=== PATIENT | male | born 1955 | race African-American/Black ===

== ENCOUNTER 2019-01-05 22:59 | Inpatient (IN) ==
[2019-01-05] MEDS ORDERED: ASPIRIN PO ONE (23:02)
[2019-01-05] MEDS ORDERED: CATAPRES PO ONE (23:53)
[2019-01-06 00:03] LABS: BASO# 0.02 X1000 (0.0-0.2); BASO% 0.2 % (0.0-0.8); EOS# 0.14 X1000 (0.0-0.7); EOS% 1.5 % (0.0-10.0); HEMATOCRIT 43.6 % (42.0-52.0); HEMOGLOBIN 14.9 g/dL (14.0-18.0); LYMPH# 2.36 X1000 (1.2-3.4); LYMPH% 24.5 % (20.5-51.1); MCH 31.4 PG (27-31); MCHC 34.2 g/dL (33-37); MONO# 0.72 X1000 (0.11-0.59); MONO% 7.5 % (1.7-9.3); MPV 11.9 FL (7.4-10.4); NEUT# 6.38 X1000 (1.4-6.5); NEUT% 66.3 % (42.2-75.2); PLT 175 X1000 (130-400); RBC 4.74 XMIL (4.7-6.1); RDW 13.2 % (11.5-14.5); WBC 9.62 X1000 (4.8-10.8)
[2019-01-06 00:11] LABS: INR 1.15; PROTIME 14.9 Seconds (11.0-16.0)
[2019-01-06 00:12] LABS: PTT 36.1 Seconds (22.3-41.8)
[2019-01-06 00:32] LABS: AGAP 12; ALB/GLOB RATIO 1.3; ALKALINE PHOSPHATASE 81 U/L (32-122); BUN 14 mg/dL (8-22); CALCIUM 8.8 mg/dL (8.8-10.2); CHLORIDE 101 mmol/L (98-107); COSMO 278; CREATININE 1.1 mg/dL (0.7-1.2); ESTIMATED GFR > 60; GLUCOSE 100 mg/dL (70-104); GOT 34 U/L (10-34); GPT 30 U/L (10-44); POTASSIUM 3.6 mmol/L (3.5-5.1); SODIUM 139 mmol/L (136-145); TCO2 26 mmol/L (25-35); TOTAL BILIRUBIN 0.82 mg/dL (0.20-1.00); TOTAL PROTEIN 7.2 g/dL (6.3-8.3)
[2019-01-06] MEDS ORDERED: APRESOLINE IV ONE (00:46)
[2019-01-06 00:47] LABS: CK PROFILE 493 U/L (24-204)
[2019-01-06 01:06] LABS: CK INDEX 1.3 (0.0-2.5); CK-MB 6.25 ng/mL (0.0-5.0)
--- NOTE | 2019-01-06 01:14 | EKG Report ---
Test Performed on : 01/05/2019 11:07:23 PM Test Reason : chest pain Blood Pressure : / mmHG Vent. Rate : 078 BPM Atrial Rate : 078 BPM P-R Int : 164 ms QRS Dur : 090 ms QT Int : 390 ms P-R-T Axes : 056 -31 142 degrees QTc Int : 444 ms Normal sinus rhythm. Left axis deviation Left ventricular hypertrophy with repolarization abnormality Abnormal ECG No previous ECGs available Unconfirmed Result
--- NOTE | 2019-01-06 01:21 | PROVIDER DOCUMENTATION ---
This chart was entered by Ajay Richard Scribe, acting as scribe for Gabe Garcia MD. HPI-Chest Pain - General Chief Complaint: Chest Pain Stated Complaint: CHEST PAIN ([place] HX) Time Seen by Provider: 01/05/19 23:05 Source: patient Allergies/Adverse Reactions: Patient Allergies Allergy/AdvReac Type Severity Reaction Status Date / Time clindamycin Allergy NAUSEA/VOMI Verified 01/05/19 23:55 TING ibuprofen Allergy ABDOMINAL Verified 01/05/19 23:55 PAIN Sulfa (Sulfonamide AdvReac Intermediate NAUSEA/VOMI Verified 01/05/19 23:55 Antibiotics) TING [Sulfa(Sulfonamide Antibiotics)] Penicillins AdvReac Unknown ITCHING Verified 01/05/19 23:55 Home Medications: Home Medication List Medication Instructions Recorded Confirmed Last Taken Type NK [No Home Medications] 01/05/19 01/05/19 Unknown History - History of Present Illness-CP Nature of Presenting Problem: Pt is a 63 yom who presents to the ED with a CC of chest pain. Pt reports he has had chest pain for approximately one month intermittently. Pt reports his pain is on the left side around his rib cage. Pt denies any pain radiation. Pt also complains of vomiting. Pt denies any shortness of breath. Pt reports a hx of an [place], HTN, GERD, and hyperlipidemia. Location: reports: other (Left rib cage region) Chest Pain Radiation: reports: no radiation Quality of Pain: reports: burning Severity in ED: mild Onset/Duration: other (One month) Timing: intermittent Associated Symptoms: reports: nausea, vomiting Prior Chest Pain/Cardiac Workup: reports: heart attack Similar Symptoms Previously?: Yes Recently Seen Here or By Another Healthcare Provider: No Review of Systems - Adult - REVIEW OF SYSTEMS - ADULT Constitutional: reports: see HPI Eyes: reports: no symptoms reported Ears, Nose, Mouth & Throat: reports: no symptoms reported Cardiovascular: reports: see HPI, chest pain Respiratory: reports: no symptoms reported Gastrointestinal: reports: see HPI, nausea, vomiting Genitourinary: reports: no symptoms reported Musculoskeletal: reports: no symptoms reported Integumentary: reports: no symptoms reported Neurological: reports: no symptoms reported Psychiatric: reports: no symptoms reported Endocrine: reports: no symptoms reported Hematologic/Lymphatic: reports: no symptoms reported Allergic/Immunologic: reports: no symptoms reported All Other Systems: Reviewed and Negative Past History - Adult - PAST MEDICAL HISTORY-ADULT Review of Records: reports: Old Records Reviewed, Nursing Assessment Review, Medications Reviewed, Social history reviewed & non-contributory. Major Childhood Illnesses: reports: denies history Cardiovascular: reports: HTN, hyperlipidemia Respiratory: reports: denies history Gastrointestinal: reports: GERD Obstetrical/Gynecological: reports: denies history Genitourinary: reports: denies history Musculoskeletal: reports: denies history Neurological: reports: denies history Endocrine/Immune: reports: denies history Other Conditions: reports: denies history - PRIOR SURGERIES/PROCEDURES Surgical/Procedure History: reports: none - PRIOR HOSPITALIZATIONS Prior Hospitalizations: reports: none - IMMUNIZATION STATUS Childhood Immunizations: See Nurse Assessment Flu Vaccine: See Nurse Assessment - FAMILY HISTORY Family History: reviewed, not pertinent - SOCIAL HISTORY Smoking: cigarettes, less than 1 pack/day Substance Use: none/never, denies Alcohol Use Frequency: never Physical Exam-General - PHYSICAL EXAM-ADULT Initial Vital Signs Reviewed: Yes - CONSTITUTIONAL General Appearance: alert, mild distress - EYES Eyes: PERRL/EOMI, pink conjunctivae - HEAD, EARS, NOSE, MOUTH & THROAT HENMT: normocephalic/atraumatic, moist mucous membranes - NECK Neck: non-tender, full range of motion - RESPIRATORY Respiratory: chest non-tender, lungs clear, normal breath sounds - CARDIOVASCULAR Cardiovascular: normal peripheral pulses, regular rate, rhythm - GASTROINTESTINAL (ABDOMEN) Abdominal Exam: non tender, soft - MUSCULOSKELETAL Extremity: normal range of motion, non-tender - SKIN Integumentary: normal color, warm/dry - NEUROLOGIC Neurologic: grossly normal, no motor/sensory deficits - PSYCHIATRIC Psych/Mental Status: normal mood/affect, normal thought content, normal thought process, oriented x 3 - HEART Score HEART Score: History: Moderately Suspicious HEART Score: ECG: Non-Specific Repolarization Disturbance/LBBB/PM HEART Score: Age: 45-65 Years HEART Score: Risk Factors for Atherosclerotic Disease: > or = 3 Risk Factors or History of Atherosclerotic Disease HEART Score: Troponin: < or = Normal Limit Total HEART Score:: 5 Progress - PLAN OF CARE/RESULTS Progress/Plan/Lab Results: Vital Signs - 8 hr 01/05/19 23:05 01/05/19 23:39 01/06/19 00:00 Temperature 98.4 F Pulse Rate 77 75 75 Respiratory Rate 20 22 17 Blood Pressure 202/110 207/122 196/125 O2 Sat by Pulse Oximetry 97 96 01/06/19 00:01 01/06/19 00:15 01/06/19 00:30 Temperature Pulse Rate 73 73 71 Respiratory Rate 13 23 21 Blood Pressure 195/122 O2 Sat by Pulse Oximetry 96 95 95 01/06/19 00:31 01/06/19 00:44 01/06/19 00:46 Temperature Pulse Rate 70 76 76 Respiratory Rate 19 15 Blood Pressure 198/126 200/135 O2 Sat by Pulse Oximetry 95 97 97 01/06/19 00:47 01/06/19 00:56 01/06/19 01:00 Temperature Pulse Rate 78 68 71 Respiratory Rate 15 17 12 Blood Pressure 186/114 173/109 O2 Sat by Pulse Oximetry 97 94 L 96 01/06/19 01:01 Temperature Pulse Rate 71 Respiratory Rate 12 Blood Pressure O2 Sat by Pulse Oximetry 96 Laboratory Results - last 24 hr 01/05/19 01/05/19 01/05/19 23:48 23:48 23:48 WBC 9.62 RBC 4.74 Hgb 14.9 Hct 43.6 MCV 92.0 MCH 31.4 H MCHC 34.2 RDW Std Deviation 13.2 Plt Count 175 MPV 11.9 H Immature Gran % (Auto) 0.0 Neut % (Auto) 66.3 Lymph % (Auto) 24.5 Ward % (Auto) 7.5 Eos % (Auto) 1.5 Baso % (Auto) 0.2 Immature Gran # (Auto) 0.00 Neut # (Auto) 6.38 Lymph # (Auto) 2.36 Ward # (Auto) 0.72 H Eos # (Auto) 0.14 Baso # (Auto) 0.02 PT INR PTT (Actin FS) Sodium 139 Potassium 3.6 Chloride 101 Carbon Dioxide 26 Anion Gap 12 BUN 14 Creatinine 1.1 Estimated GFR/1.73 m2 > 60 BUN/Creatinine Ratio 13 Glucose 100 Calculated Osmolality 278 Calcium 8.8 Total Bilirubin 0.82 AST 34 ALT 30 Alkaline Phosphatase 81 Creatine Kinase 493 H Creatine Kinase Index 1.3 CK-MB (CK-2) 6.25 H Troponin T [id number] Pept 1891 H Total Protein 7.2 Albumin 4.0 Globulin 3.2 Albumin/Globulin Ratio 1.3 01/05/19 01/05/19 23:48 23:48 WBC RBC Hgb Hct MCV MCH MCHC RDW Std Deviation Plt Count MPV Immature Gran % (Auto) Neut % (Auto) Lymph % (Auto) Ward % (Auto) Eos % (Auto) Baso % (Auto) Immature Gran # (Auto) Neut # (Auto) Lymph # (Auto) Ward # (Auto) Eos # (Auto) Baso # (Auto) PT 14.9 INR 1.15 PTT (Actin FS) 36.1 Sodium Potassium Chloride Carbon Dioxide Anion Gap BUN Creatinine Estimated GFR/1.73 m2 BUN/Creatinine Ratio Glucose Calculated Osmolality Calcium Total Bilirubin AST ALT Alkaline Phosphatase Creatine Kinase Creatine Kinase Index CK-MB (CK-2) Troponin T < 0.010 [id number] Pept Total Protein Albumin Globulin Albumin/Globulin Ratio Orders Category Date Time Status Cardiac Monitoring DIRECTED Care 01/05/19 23:04 Active Oxygen Therapy- ED Nursing DIRECTED Care 01/05/19 23:04 Active Saline Loc NOW Care 01/05/19 23:04 Active CHEST-2 VIEWS [RAD] Stat Exams 01/05/19 23:04 Taken CBC WITH ELECTRONIC DIFF [HEME] Stat Lab 01/05/19 23:48 Completed CK PROFILE [SP CHEM] Stat Lab 01/05/19 23:48 Completed COMPREHENSIVE METABOLIC PANEL [CHEM] Stat Lab 01/05/19 23:48 Completed PRO B-NATRIURETIC PEPTIDE Stat Lab 01/05/19 23:48 Completed PROTIME WITH INR [COAG] Stat Lab 01/05/19 23:48 Completed PTT [COAG] Stat Lab 01/05/19 23:48 Completed TROPONIN T Stat Lab 01/05/19 23:48 Completed 0.9% Sodium Chloride Inj [Ns] 500 ml Med 01/06/19 01:23 Active IV 999 mls/hr Aspirin Med 01/05/19 23:02 Discontinued 325 mg PO NOW ONE Clonidine [Catapres] Med 01/05/19 23:53 Discontinued 0.2 mg PO NOW ONE Hydralazine [Apresoline] Med 01/06/19 00:46 Discontinued 20 mg IV NOW ONE CP/SOB/Palp >45 yrs of Age Stat Oth 01/05/19 23:02 Ordered EKG [EKG] Stat Ther 01/05/19 23:04 Draft EKG [EKG] Stat Ther 01/06/19 01:13 Ordered Result Diagrams: 01/05/19 23:48 01/05/19 23:48 - EKG 1 Time of EKG reading by physician:: 23:07 EKG Read and Signed by:: Gabe Garcia EKG Interpretation (*Must complete 3 of following elements*): Abnormal (Left axis deviation; Left ventricular hypertrophy with repolarization abnormality) Rate: 78 Rhythm: NSR [place]: left QRS: normal NE Interval: normal ST Wave: normal 2 Time of EKG reading by physician:: 01:19 EKG Read and Signed by:: Gabe Garcia EKG Interpretation (*Must complete 3 of following elements*): Abnormal (Left ventricular hypertrophy with repolarization abnormality) Rate: 56 Rhythm: Sinus bradycardia [place]: normal QRS: normal NE Interval: normal ST Wave: normal - CONSULTS/PCP/HOSPITALIST Notification #1 *Consult/PCP/Hospitalist*: Dr. Garibay - Hospitalist Time Discussed: 01:30 Reason/Comments: Made aware of pt and accepts admission. Consult Disposition: Admit Departure - Departure Date of Disposition Decision: 01/05/19 Time of Disposition Decision: 01:18 DIAGNOSIS: CHF (congestive heart failure), Chest pain, Bradycardia, Uncontrolled hyper tension Disposition: ADMITTED INPATIENT 09 Certified Medical Emergency: Emergent Condition: Fair Additional Instructions: ED Follow Up Instructions: You have been treated by a care provider in the Emergency Department. These instructions are being provided to you so you can have an understanding of how to care for yourself upon discharge. Upon discharge from the Emergency Department, you are responsible for making arrangements for follow-up care by a physician of your choice. Take all prescribed medications as directed. Return to the Emergency Department immediately for any new or worsening symptoms. You may call the Physician Referral phone number at [phone] to obtain a list of Physicians who are taking new patients. Referrals and Follow-Ups: None,PCP [Primary Care Provider] - - Critical Care Note This patient required my direct & personal management of CC.: No Attestation - Physician/ SERGIO Attestation Patient care was provided by Advanced Practice Provider:: No The physician spent face to face time with patient:: Yes Advanced Practice Provider documentation review:: Supervising physician onsite and consulted in the evaluation and care of this patient. The physician did have a face to face encounter with the patient. This chart was documented by the indicated scribe, (Ajay Richard, [place]) and accurately reflects the services I performed and decisions made by me, Gabe Garcia MD, as attested by the provider's signature.
[2019-01-06] MEDS ORDERED: NS 500 ML IV ONE (01:23)
[2019-01-06] MEDS ORDERED: ZOFRAN IV ONE (01:38)
[2019-01-06] MEDS ORDERED: LOVENOX 1 MG/KG SUBQ ONE (02:59)
--- NOTE | 2019-01-06 03:00 | EKG Report ---
Test Performed on : 01/06/2019 01:19:45 AM Test Reason : bradycardia/chest pain Blood Pressure : / mmHG Vent. Rate : 056 BPM Atrial Rate : 056 BPM P-R Int : 152 ms QRS Dur : 092 ms QT Int : 460 ms P-R-T Axes : 046 -28 142 degrees QTc Int : 443 ms Sinus bradycardia. Left ventricular hypertrophy with repolarization abnormality Abnormal ECG When compared with ECG of 05-JAN-2019 23:07, (Unconfirmed) No significant change was found Unconfirmed Result
[2019-01-06] MEDS ORDERED: SODIUM CHLORIDE 0.9% INJ ONE (03:03)
[2019-01-06] MEDS ORDERED: PROTONIX IV ONE (03:03)
[2019-01-06] MEDS ORDERED: LOVENOX SUBQ ONE (03:15)
--- NOTE | 2019-01-06 03:28 | HISTORY AND PHYSICAL ---
ADDENDUM: The patient comes in complaining of 3 to 4 month history of intermittent chest pain which has became constant over the last few days. He said the pain usually in the recent past spontaneously resolves, but this has become more intense and constant. He denies any other anginal symptoms. He has had MIs in the past, and I believe had a cardiac cath 5 years ago. He is noncompliant with his medication and has a history of hypertension, hyperlipidemia, and smokes. There is a family history of CAD. His troponin is negative, but CK and MB is slightly elevated. He has a heart score of 4 and will be admitted and treated as unstable angina. He was given clonidine and hydralazine, which caused his blood pressure to bottom out and the patient became symptomatic. He has since been given a half liter bolus. His blood pressure is now 120/70. The patient will be on Lovenox, aspirin, high dose statins. Keep NPO for possible cardiac cath per Cardiology. Smoking cessation was also reiterated. cc: Abel Garibay MD
[2019-01-06] MEDS ORDERED: ZOFRAN IV PRN (06:00)
[2019-01-06 06:10] LABS: CK INDEX 1.2 (0.0-2.5); CK-MB 4.79 ng/mL (0.0-5.0)
--- NOTE | 2019-01-06 07:45 | EKG Report ---
Test Performed on : 01/06/2019 06:31:49 AM Test Reason : Chest Pain Blood Pressure : / mmHG Vent. Rate : 061 BPM Atrial Rate : 061 BPM P-R Int : 174 ms QRS Dur : 086 ms QT Int : 496 ms P-R-T Axes : 054 -17 233 degrees QTc Int : 499 ms Normal sinus rhythm. Left ventricular hypertrophy with repolarization abnormality Prolonged QT Abnormal ECG When compared with ECG of 06-JAN-2019 01:19, (Unconfirmed) T wave inversion now evident in Inferior leads QT has lengthened Unconfirmed Result
--- NOTE | 2019-01-06 08:00 | Diag Imaging Result Doc PS360 ---
EXAM: CHEST-2 VIEWS INDICATION: chest pain TECHNIQUE: 2 views COMPARISON: 08/02/2013 FINDINGS: The lungs are grossly clear. There is no discrete pleural fluid collection or pneumothorax. The cardiomediastinal silhouette and central vasculature are grossly unremarkable. IMPRESSION: No evidence of acute pathology by plain radiograph. Electronically signed by Carlyle Macias 01/06/2019 7:57 AM
--- NOTE | 2019-01-06 08:53 | EKG Report ---
Test Performed on : 01/06/2019 08:16:33 AM Test Reason : chest pain Blood Pressure : / mmHG Vent. Rate : 062 BPM Atrial Rate : 062 BPM P-R Int : 172 ms QRS Dur : 092 ms QT Int : 482 ms P-R-T Axes : 055 -19 211 degrees QTc Int : 489 ms Normal sinus rhythm. Voltage criteria for left ventricular hypertrophy T wave abnormality, consider inferolateral ischemia Prolonged QT Abnormal ECG When compared with ECG of 06-JAN-2019 06:31, (Unconfirmed) No significant change was found Unconfirmed Result
[2019-01-06 10:12] LABS: URINE SOURCE CLEAN CATCH
[2019-01-06 10:16] LABS: BILIRUBIN URINE NEGATIVE (NEGATIVE); BLOOD URINE NEGATIVE (NEGATIVE); COLOR YELLOW; GLUCOSE URINE NEGATIVE (NEGATIVE); KETONE URINE NEGATIVE (NEGATIVE); LEUKOCYTES URINE NEGATIVE (NEGATIVE); NITRITE URINE NEGATIVE (NEGATIVE); PH URINE 6.5; PROTEIN URINE 30 mg/dL (NEGATIVE); SP GRAVITY URINE 1.024; TURBIDITY URINE CLEAR (CLEAR); UROBILINOGEN URINE 2 mg/dL (NORMAL)
[2019-01-06 10:34] LABS: UR AMPHETAMINES MT NONE DETECTED (NONE DETECT); UR BARBITUATES MT NONE DETECTED (NONE DETECT); UR BENZODIAZ MT NONE DETECTED (NONE DETECT); UR CANNABIS MEDTOX NONE DETECTED (NONE DETECT); UR COCAINE MT NONE DETECTED (NONE DETECT); UR METHADONE MEDTOX NONE DETECTED (NONE DETECT); UR OPIATES MT NONE DETECTED (NONE DETECT); UR OXYCODONE MEDTOX NONE DETECTED (NONE DETECT); UR PCP MEDTOX NONE DETECTED (NONE DETECT)
[2019-01-06 10:36] LABS: UR EPITHELIAL CELLS <10 /HPF (<10); URINE BACTERIA NEGATIVE /HPF; URINE RBC <10 /HPF (<10); URINE WBC <10 /HPF (<10)
[2019-01-06 10:37] LABS: URINE CRYSTALS NONE SEEN
[2019-01-06 12:10] LABS: CK INDEX 1.2 (0.0-2.5); CK-MB 4.38 ng/mL (0.0-5.0)
--- NOTE | 2019-01-06 12:42 | HISTORY AND PHYSICAL ---
PRIMARY CARE PHYSICIAN: The patient does not have a primary care provider. DATE AND TIME: 01/06/2019 at 0200. CHIEF COMPLAINT: Chest pain. HISTORY OF PRESENT ILLNESS: Mr. Nguyen is a 63-year-old, -[place] male who does have a past medical history of coronary artery disease, status post reported 3 myocardial infarctions with the last one being around 2013. This is also the time of his last cardiac catheterization. He denies any history of having any coronary stents placed or having any other heart- related surgeries. He also has a history of hypertension, hyperlipidemia, and thyroid disease. The patient reports that he has not seen a physician in approximately 3 years. He also is supposed to take blood pressure medication and cholesterol medication, though has not taken any of his recommended medications in approximately 3 years either. The patient does report that he has high blood pressure all the time. The patient as well as a family member at bedside did report that when they do take his blood pressure, it is always in the 190s to 200s systolically, and has been this way for her quite some time now. The patient also does smoke cigarettes. He smokes about half a pack a day and has done so since he states he was 7 years old, though I do not believe he smoked as heavily as he does now when he was younger. He denied any alcohol or illicit drug use. The patient states that for approximately 3 to 4 months now that he has been having intermittent left-sided chest pain that radiates to his left axilla and his left side. He states that the chest pain is a stinging/stabbing pain in nature. He reports that over the last 3 or 4 months that his chest pain has become more frequent and is steadily becoming more intense. It has gotten to where it becomes almost constant recently. He states that nothing really relieves his pain. He states that the pain usually comes on when he is at rest. He denies any strenuous activity prior to or during his chest pain episodes. Other than occasional episode of dizziness and reported 1 to 2 headaches, he has no other associated symptoms. He denies any near-syncope, syncope, shortness of breath, nausea, or vomiting. He does report that he has frequent indigestion/heartburn. This happens on a daily basis multiple times a day. He denied any other cough, fever, body aches, chills. He does report occasional epigastric pain with his indigestion and was tender in this area upon palpation. He also reported that this felt like it was a wall burning type pain in his epigastric area. He denies any nausea prior to his arrival to the ER. He denies any vomiting or diarrhea. He denied any hematochezia or melena. He denies any dysuria or urinary frequency. He also denies any pain, numbness, tingling, or swelling in his extremities. Upon evaluation in the ER, the patient's initial vital signs, he did have a blood pressure upon arrival of 202/110, with a heart rate of 77, respirations of 20, and oxygen saturation 97% on room air. Lab results did reveal that he did have an elevated CK of 493, though troponin was negative at less than 0.01. His proBNP was elevated at 1891. The patient's EKG showed normal sinus rhythm with a left axis deviation with left ventricular hypertrophy with repolarization abnormality, at a rate of 78, with a QTc of 444. We do have one previous EKG from July of 2013. There does not appear to be any acute changes noted. There is some T-wave inversion present, though this was present on the previous EKG as well. The patient was given a full dose aspirin upon arrival to the ER. They did initially give him 0.2 mg of clonidine for his blood pressure and did subsequently give him Apresoline 20 mg IV push. Unfortunately, this did lower the patient's blood pressure pretty low from what his reported baseline is. At this time, he went from having a blood pressure in the 190s to 200s systolically to having a blood pressure at the lowest being 102/47, with a heart rate of 52. It was only after this that the patient did become symptomatic. He reported dizziness, not feeling well, feeling weak, and being nauseated. He was not reporting any chest pain during this episode and is still not reporting any chest pain at this time. He did receive a 500 mL normal saline bolus after this and his blood pressure has improved with the last reading of 123/64. His heart rate is maintaining in the 60s. His symptoms have also improved as well. Given the patient's reported history and symptoms, he is having unstable angina, he will be admitted for further treatment and evaluation. REVIEW OF SYSTEMS: A 14 point review of systems was conducted with the patient. All were negative except for pertinent positives mentioned above in the HPI. PAST MEDICAL HISTORY: 1. History of coronary artery disease with reportedly a history of 3 myocardial infarctions. The patient reports that his last one was in 2013. This was also his last reported cardiac catheterization as well. 2. Hypertension. 3. Hyperlipidemia. 4. Thyroid disease. 5. Gastroesophageal reflux disease. 6. Nicotine dependence. 7. Medical noncompliance. PAST SURGICAL HISTORY: 1. Reported abdominal surgery for an unknown reason when he was a child. 2. Tonsillectomy. SOCIAL HISTORY: The patient is an everyday smoker. He smokes half a pack of cigarettes per day at present, though he reports that he has been smoking since he was 7 years old. He denies any alcohol or illicit drug use. FAMILY HISTORY: Positive for a history of heart disease and coronary artery disease in his mother, father, and siblings. ALLERGIES: The patient reports allergies to clindamycin, ibuprofen, sulfa, and penicillin. HOME MEDICATIONS: The patient denies any home medications or hzyp-flx-zcmfyst medication use. DIAGNOSTIC DATA: White blood cell count is 9620, hemoglobin 14.9, hematocrit 43.6, platelet count is 175,000. PT 14.9, INR is 1.15, PTT is 36.1. Sodium 139, potassium 3.6, chloride 101, serum bicarb is 26, BUN 14, creatinine 1.1, with a GFR greater than 60, glucose 100, calcium 8.8, magnesium 2. Liver function tests are within normal limits. CK was 493, CK index 1.3, CK-MB was 6.25, troponin was less than 0.01. ProBNP was 1891. Chest x-ray showed no acute abnormality, though we are awaiting official radiology over-read. EKG showed normal sinus rhythm with a left axis deviation and left ventricular hypertrophy with a repolarization abnormality. There was also T-wave inversion noted in leads 1, 2, aVL, 4, 5, and 6, at a rate of 78, with a QTc of 444. We do have an EKG from July of 2013. In comparison, at this time, there does not appear to be any acute changes noted and the T-wave inversion was present then as well. PHYSICAL EXAMINATION: VITAL SIGNS: Heart rate 63, respirations 19, blood pressure is 123/64, with a MAP of 78, oxygen saturation is 98% on room air. GENERAL: Mr. Nguyen is a 63-year-old, -[place] male who was resting on the ER stretcher. He was in no acute distress. He was awake, alert, and able to answer questions appropriately. Unfortunately, he is not a good historian. HEENT: Head is atraumatic, normocephalic. Pupils are equal, round, reactive to light, were 3 mm bilaterally and brisk. Oral mucosa is moist. Oropharynx is clear. NECK: Neck is supple. Trachea midline. Slight JVD noted upon examination, though the patient was lying back flat in the bed. CARDIOVASCULAR: The patient has S1, S2 noted. No murmurs, gallops, or rubs appreciated, with a regular rate and rhythm. PULMONARY: The patient has symmetrical chest expansion bilaterally. Lung sounds are clear in all collier to auscultation except for in the right lower lobe, he did have some slight crackles noted, though the patient was lying on his right side during my examination due to him not feeling well from his blood pressure being a little low just previously. ABDOMEN: Soft, nondistended. He was nontender except for in the epigastric area. He did have some slight tenderness noted. Bowel sounds are present in all 4 quadrants and were normoactive. EXTREMITIES: No cyanosis or edema noted. Pulse, motor, and sensory were intact in all extremities. Radial and pedal pulses are 2+ bilaterally. INTEGUMENTARY: The patient's skin color is normal for his race, is dry and intact. NEUROLOGICAL: The patient is alert and oriented to person, place, time, and situation. He is able move all extremities. He has no focal neurological deficits noted. ASSESSMENT AND PLAN: 1. Unstable angina. Further evaluation of this, we will continue with a series of cardiac enzymes. We ordered an echocardiogram and a repeat electrocardiogram for in the morning. He will be nothing per oral until evaluated by cardiology. He was already given a full-dose aspirin. We will continue this daily. We also will treat him with a one- time dose of 1 mg/kg Lovenox and start him on atorvastatin 80 mg daily. We have ordered for a lipid profile this morning as well. We have placed a consult with cardiology with Dr. Olivares. We will await their evaluation and further recommendations for management. Given the patient's elevated blood pressure and then becoming hypotensive after blood pressure medication administration, as well as his symptoms, he will be placed on PVC for close monitoring. 2. Uncontrolled hypertension. We will continue to monitor this at this time. As mentioned above in the history of present illness, the patient's blood pressure was quite elevated upon his arrival to the emergency room and according to the patient, his blood pressure stays in the 190s to 200s, and has been this way for quite some time. He is supposed to take blood medications though is noncompliant with this. He was given blood pressure medications of clonidine 0.2 mg by mouth and hydralazine 20 mg intravenous in the emergency room and after administration of these medications, he did become hypotensive as well as slightly bradycardic. His blood pressure had improved after being given a 500 mL normal saline bolus, though at this time, it is still only in the 120s systolically. We will hold any further antihypertensives at this time. We will continue to monitor and implement these if necessary. 3. History of hyperlipidemia. We have ordered a lipid profile. We also placed the patient with atorvastatin 80 mg by mouth daily. 4. History of coronary artery disease with reported history of 3 myocardial infarctions in the past with the last one being in 2013. The patient also reports that this was the time of his last cardiac catheterization. We will continue with treatment as mentioned above for #1. 5. Nicotine dependence. We did child and family counselor the patient on the importance of smoking cessation. We will continue to do this throughout his admission and upon discharge. We did offer the patient a nicotine patch and he declined this at this time. He has been placed on PVC for close monitoring. We will do every 1 hour vital signs for 6 hours and then every 4 hours vital signs. He will have strict intake and output. He will be nothing per oral . We will repeat a series of cardiac enzymes and an electrocardiogram in the morning. Further orders and recommendations pending hospital course, diagnostic studies, and physician evaluation. Dictated by BARRETT Arteaga for Abel Garibay MD cc: Abel Garibay MD [facility]
--- NOTE | 2019-01-06 13:37 | ECHO REPORT ---
ORDER DATE: 01/06/2019 INDICATION: Chest pain, coronary artery disease. FINDINGS: 1. Right atrium is mildly enlarged at 4.5 cm. 2. Mild tricuspid regurgitation. RV systolic pressure of 27. 3. Normal RV size and systolic function. 4. Trace pulmonic insufficiency. 5. Severe left atrial enlargement with a volume index of 42. 6. No mitral valve prolapse. Trace mitral regurgitation. No mitral stenosis. 7. Dilated left ventricle with an end-diastolic dimension of 6.3 cm. Mild to moderate left ventricular hypertrophy with a posterior and interventricular septal wall thickness 1.4 cm each. Somewhat difficult to estimate LV systolic function. It appears to be borderline normal to normal with an estimated EF in the 50 to 55 percent range. No obvious segmental abnormalities are identified. 8. The aortic valve opens well. It is trileaflet. No evidence of stenosis or insufficiency. 9. The aorta appears normal in visualized segments. 10. No pericardial effusion seen. cc: Jonnathan Olivares MD
[2019-01-06 15:23] LABS: CK INDEX 1.3 (0.0-2.5); CK-MB 3.97 ng/mL (0.0-5.0)
[2019-01-06] MEDS: LIPITOR PO SCH (21:42)
[2019-01-07 00:03] LABS: CK INDEX 1.2 (0.0-2.5); CK-MB 3.38 ng/mL (0.0-5.0)
[2019-01-07 07:23] LABS: BASO# 0.03 X1000 (0.0-0.2); BASO% 0.4 % (0.0-0.8); EOS# 0.17 X1000 (0.0-0.7); HEMATOCRIT 39.5 % (42.0-52.0); HEMOGLOBIN 13.4 g/dL (14.0-18.0); LYMPH# 2.17 X1000 (1.2-3.4); LYMPH% 25.6 % (20.5-51.1); MCH 31.6 PG (27-31); MCHC 33.9 g/dL (33-37); MCV 93.2 FL (81-99); MONO# 0.88 X1000 (0.11-0.59); MONO% 10.4 % (1.7-9.3); MPV 12.8 FL (7.4-10.4); NEUT# 5.22 X1000 (1.4-6.5); NEUT% 61.6 % (42.2-75.2); PLT 153 X1000 (130-400); RBC 4.24 XMIL (4.7-6.1); RDW 13.4 % (11.5-14.5); WBC 8.47 X1000 (4.8-10.8)
[2019-01-07 07:52] LABS: CALCIUM 8.5 mg/dL (8.8-10.2); CREATININE 1.5 mg/dL (0.7-1.2); MAGNESIUM 1.9 mg/dL (1.5-2.7)
[2019-01-07] MEDS ORDERED: ASPIRIN PO SCH (09:00)
[2019-01-07] MEDS ORDERED: APRESOLINE IV PRN (13:16)
[2019-01-07] MEDS ORDERED: APRESOLINE IV ONE (13:17)
[2019-01-07] MEDS ORDERED: COREG PO ONE (13:26)
[2019-01-07] MEDS: NICODERM PATCH TD SCH ×2 (13:54→18:08)
[2019-01-07] MEDS: LABETALOL IV PRN ×2 (14:05→18:24)
--- NOTE | 2019-01-07 18:07 | PROGRESS NOTE ---
DATE: 01/07/2019 SUBJECTIVE: The patient states that he wants to go home. He denies having any further chest pain, shortness of breath, headache or dizziness. His blood pressures have been running high. OBJECTIVE: Vital Signs: Temperature 98.6 degrees, blood pressure 164/94, heart rate 67, respirations 16, O2 saturation 97% on room air. General: This is an elderly male sitting up in bed in no acute distress. Heart: S1, S2 normal. Regular rate and rhythm. Lungs: Clear to auscultation bilaterally. Abdomen: Positive bowel sounds. Soft, nontender, nondistended. Extremities: No edema, no cyanosis. No calf tenderness. Neurologic: The patient is alert and oriented x3. LABORATORY DATA: Sodium 140, potassium 4, chloride 104, CO2 is 24, BUN 20, creatinine 1.5, glucose 110, calcium 8.5, magnesium 1.9. Hemoglobin 13, hematocrit 39. ASSESSMENT AND PLAN: 1. Chest pain. The cardiology workup is in progress. We will continue with the current cardiac medications. 2. Uncontrolled hypertension. We will adjust the patient's antihypertensive regimen. 3. Tobacco dependence. The patient has been counseled about smoking cessation. 4. Coronary artery disease. Continue on the current cardiac medications. cc: Cherelle Medellin MD
[2019-01-07] MEDS: LIPITOR PO SCH (21:36)
[2019-01-07] MEDS: COREG PO SCH (21:36)
[2019-01-07] MEDS: NORVASC PO SCH (21:37)
[2019-01-07] MEDS: TYLENOL PO PRN (21:37)
[2019-01-08 06:29] LABS: AGAP 12; BUN 18 mg/dL (8-22); CALCIUM 8.3 mg/dL (8.8-10.2); CHLORIDE 105 mmol/L (98-107); COSMO 282; CREATININE 1.3 mg/dL (0.7-1.2); ESTIMATED GFR > 60; GLUCOSE 112 mg/dL (70-104); POTASSIUM 4.2 mmol/L (3.5-5.1); SODIUM 140 mmol/L (136-145); TCO2 23 mmol/L (25-35)
[2019-01-08 06:37] LABS: HEMOGLOBIN 13.7 g/dL (14.0-18.0); MCH 32.4 PG (27-31); MCHC 34.3 g/dL (33-37); MCV 94.6 FL (81-99); MPV 12.6 FL (7.4-10.4); RBC 4.23 XMIL (4.7-6.1); RDW 13.5 % (11.5-14.5); WBC 8.84 X1000 (4.8-10.8)
[2019-01-08] MEDS: LABETALOL IV PRN (06:52)
[2019-01-08] MEDS ORDERED: PRINIVIL PO SCH (09:00)
[2019-01-08] MEDS: COREG PO SCH ×2 (09:04→20:24)
[2019-01-08] MEDS: ASPIRIN PO SCH (09:04)
[2019-01-08] MEDS: NICODERM PATCH TD SCH (09:04)
[2019-01-08] MEDS: NORVASC PO SCH ×2 (09:04→20:24)
[2019-01-08] MEDS: PRINIVIL PO SCH (09:04)
[2019-01-08] MEDS: TYLENOL PO PRN (12:10)
[2019-01-08] MEDS: CARDENE 20 MG/NS 20 MG/200 ML PIGGYBACK IV SCH ×2 (13:36→17:13)
--- NOTE | 2019-01-08 18:54 | PROGRESS NOTE ---
DATE: 01/08/2019 SUBJECTIVE: The patient's blood pressure has been running high, systolics in the 190s, diastolics in the 1 teens. He denies having any headache, chest pain or shortness of breath. OBJECTIVE: Vital Signs: Temperature 98.6 degrees, blood pressure 172/101, heart rate 60, respirations 10, O2 saturation 96% on room air. General: This is a chronically ill-appearing, elderly male lying in bed in no acute distress. Heart: S1, S2 normal. Regular rate and rhythm. Lungs: Clear to auscultation bilaterally. No wheezing. No rales. Abdomen: Positive bowel sounds. Soft, nontender, nondistended. Extremities: No edema. No cyanosis. Neurologic: The patient is alert and oriented x4. LABORATORIES: White blood cell count 8.8, hemoglobin 13, hematocrit 40, platelets 169,000. Sodium 140, potassium 4.2, chloride 105, CO2 23, BUN 18, creatinine 1.3, glucose 112. ASSESSMENT AND PLAN: 1. Uncontrolled hypertension. We will transfer the patient to the intensive care unit and start him on a Cardene drip. We will also increase the lisinopril. Will await further recommendations from the drapery estimator. 2. Chest pain. Resolved. Workup is in progress. 3. Tobacco dependence. The patient has been counseled about smoking cessation. 4. Coronary artery disease. Aware. Continue on aspirin, beta adeline and statin therapy. 5. Deep vein thrombosis prophylaxis. We will start the patient on heparin. 6. Acute kidney injury. Improved. cc: Cherelle Medellin MD [facility]TDD
[2019-01-08] MEDS: HEPARIN SUBQ SCH (20:23)
[2019-01-08] MEDS: LIPITOR PO SCH (20:24)
[2019-01-09] MEDS: TYLENOL PO PRN (00:30)
[2019-01-09 05:50] LABS: AGAP 12; BUN 15 mg/dL (8-22); CALCIUM 8.7 mg/dL (8.8-10.2); CHLORIDE 103 mmol/L (98-107); COSMO 282; CREATININE 1.2 mg/dL (0.7-1.2); ESTIMATED GFR > 60; GLUCOSE 128 mg/dL (70-104); POTASSIUM 3.9 mmol/L (3.5-5.1); SODIUM 140 mmol/L (136-145); TCO2 25 mmol/L (25-35)
--- NOTE | 2019-01-09 05:55 | CARDIOLOGY CONSULTATION ---
DATE: 01/06/2019 CHIEF COMPLAINT: Chest pain. CONSULTATION: Hospitalist service. REASON FOR CONSULTATION: Chest pain. HISTORY: Mr. Nguyen is a 63-year-old black gentleman who presented to the emergency room last night, January 05, complaining of recurrent chest pain. He referred this pain at the left side of the chest that has been intermittent for the past several days. On the day prior to admission, it got really worse and he decided to come in for evaluation. The patient does not follow regularly with any doctor and he has not been taking any medications that he is aware of. He has been in the ER and they have done several troponin levels. First troponin is 0.010, 2nd is 0.024, 3rd one is 0.022. CPKs, 1st one is 493, 2nd 404, 3rd is 360. CK index is negative, is 1.3 and 1.2%. CK-MB fraction is very low. His proBNP level on the other hand is high at 1891, being normal up to 177 picograms per mL. BUN and creatinine are normal. A chest x-ray has been done that shows no evidence of acute pathology. An echocardiogram has been done and it shows enlargement of the left ventricular chamber with moderate concentric LVH and a slightly decreased ejection fraction. At this time, the patient is feeling better. A nuclear resting study has been requested. We will have to review that study. PAST HISTORY: Positive for previous evaluation in the ER. He was sent to [facility] in 2013 and they performed a left heart catheterization that showed no evidence of coronary obstruction. Actually, his coronary arteries were large and pretty normal. He has no physician that he follows with. The patient did have an abnormal EKG 4 years ago when he came to the ER. His EKG continues to be abnormal with diffuse repolarization abnormality very consistent with hypertensive heart disease. His history is also positive for acid reflux. PAST SURGICAL HISTORY: Negative. SOCIAL HISTORY: He has been to his . They have 3 children. He has been smoking 1/2 to 1 pack a day for many years. Currently he is unemployed. FAMILY HISTORY: Noncontributory. ALLERGIES: Clindamycin, ibuprofen, sulfa drugs, penicillin. MEDICATIONS: He does not take any prescription medicine. REVIEW OF SYSTEMS: Other than the chest pain is noncontributory. PHYSICAL EXAMINATION: Vital signs: Blood pressure is 137/79, pulse 60, respirations 18, temperature 98.4 degrees. General: He is awake, alert, oriented, in no distress. HEENT: Unremarkable. Chest: Clear to auscultation and percussion. Heart: Sounds regular and rhythmic. No gallop or murmur. Abdomen: Obese, nontender. No masses. No hepatomegaly. Extremities: Good pulses. No peripheral edema. Neurologic: Nonfocal. Moves all 4 extremities. IMPRESSION: 1. Patient who presents with chest pain that is somewhat atypical. He does have a borderline "pinzon zone" elevation of troponin. 2. His EKG is frankly abnormal. 3. Suspect hypertensive heart disease or other type of cardiomyopathy. 4. Tobacco user. 5. Medical non compliance. RECOMMENDATION: At this time, we will request a stress test. If his resting scan is negative, we will continue to trend troponins. If the troponins are frankly positive, we will put him on Lovenox. The patient really needs to establish his care with a primary care physician for management of long-term hypertension and other risk factors. He needs to quit smoking. We will follow him along. cc: Brant Hills MD [facility]
--- NOTE | 2019-01-09 07:01 | Diag Imaging Result Doc PS360 ---
EXAM: CHEST-PORTABLE 01/09/2019 HISTORY: dyspnea TECHNIQUE: AP portable upright at 0458 COMMENT: There is no evidence of acute cardiac or pulmonary disease. Compared to 01/05/2019 there has been no significant change. IMPRESSION: No acute disease. Electronically signed by Cornelius Mike 01/09/2019 6:59 AM
--- NOTE | 2019-01-09 08:01 | CARDIOLOGY PROGRESS NOTE ---
DATE: 01/09/2019 CHIEF COMPLAINT: Chest pain. SUBJECTIVE: Mr. Nguyen is feeling just fine. He is not having any more chest pain. He is just sleepy. OBJECTIVE: Blood pressure is 155/99, temperature 97.2, pulse 60, respirations 16. The patient is awake, alert, oriented, no distress. HEENT is unremarkable. Chest: Sounds clear to auscultation and percussion. Heart sounds are regular and rhythmic. No gallop or murmur. Abdomen is nontender. Extremities show good pulses, no edema. Neurologic: Follows commands. Moves all 4 extremities. IMPRESSION: 1. The patient presented with chest pain, somewhat atypical. 2. The patient is medically noncompliant. 3. Hypertension. 4. Abnormal EKG. 5. The patient seems to have a mild degree of chronic left ventricular systolic dysfunction with congestive heart failure, probably functional class 2 to 3. His ProBNP level was 1891 picogram per milliliter at the time of admission. RECOMMENDATIONS: At this time, we will proceed with a myocardial perfusion stress test. Depending on that result, we will either pursue heart catheterization or medical management. The patient really needs to establish care with a primary medical doctor for monitoring of his blood pressure and health in general. cc: Brant Hills MD
[2019-01-09] MEDS ORDERED: LEXISCAN ONE (08:33)
[2019-01-09] MEDS: NORVASC PO SCH ×2 (10:39→20:36)
[2019-01-09] MEDS: HEPARIN SUBQ SCH ×2 (10:39→20:36)
[2019-01-09] MEDS: PRINIVIL PO SCH (10:39)
[2019-01-09] MEDS: COREG PO SCH ×2 (10:39→20:36)
[2019-01-09] MEDS: ASPIRIN PO SCH (10:39)
[2019-01-09] MEDS: NICODERM PATCH TD SCH (10:39)
--- NOTE | 2019-01-09 13:07 | Diag Imaging Result Document ---
PROCEDURE NAME: MYOCARDIAL PERF SCAN, STR/REST - 01/06/2019 SUMMARY: The patient was studied using do a two-day protocol, and underwent resting sestamibi study on 01/06/2019. The patient was administered 37.2 mCi of Tc 9199m sestamibi, after which resting cardiac images were obtained. The patient returned for resting sestamibi study on 01/09/2019. The patient was stressed using a walking Lexiscan protocol. The patient was administered Lexiscan 0.4 mg intravenously, after which the heart went 54 beats per minute to 77 beats per minute. The blood pressure went from 163/87 to 132/80. With Lexiscan, the patient denied chest discomfort. Following the administration of Lexiscan, the patient was administered 38.5 mCi of technetium-99m sestamibi, after which gated stress cardiac images were obtained. Baseline ECG demonstrated sinus bradycardia with voltage criteria for left ventricular hypertrophy, and inferolateral ST and T-wave abnormality possibly due to repolarization abnormality from left ventricular hypertrophy. With Lexiscan, baseline ST and T-wave abnormality, it did not change significantly. SPECT images were reconstructed in the short, horizontal, and vertical long axis. Review of SPECT images suggested moderate left ventricular enlargement on both stress and resting images. There is a small area of moderately diminished activity in the basal inferolateral region of the left ventricle on stress images which improves on resting images. Gated images demonstrate a calculated left ejection fraction of 50% with symmetrical wall motion/thickening. CONCLUSIONS: 1. Adequate response to Lexiscan. 2. Clinically negative for chest pain. 3. Electrocardiographically, baseline ST and T-wave abnormality did not change significantly following administration of Lexiscan. 4. Lexiscan sestamibi images suggests moderate left ventricular enlargement with a small area of moderate reversibility in the basal inferolateral region of the left ventricle suggesting inducible myocardial ischemia in this region. Calculated left ejection fraction 50% with symmetrical wall motion/thickening. Clinical correlation recommended. cc: MD Addie Montiel PA
--- NOTE | 2019-01-09 15:47 | PROGRESS NOTE ---
DATE: 01/09/2019 SUBJECTIVE: The patient is resting comfortably in bed. He denies having any chest pain or shortness of breath. OBJECTIVE: Vital Signs: Temperature 98.6 degrees, blood pressure 148/88, heart rate 61, respirations 14, O2 saturation 95% on room air. General: This is a chronically ill-appearing elderly male sitting up in bed in no acute distress. Heart: S1, S2 normal. Regular rate and rhythm. Lungs: Clear to auscultation bilaterally. Abdomen: Positive bowel sounds. Soft, nontender, nondistended. Extremities: No edema, no cyanosis. Neuro: The patient is alert and oriented x3. LABS: Sodium 140, potassium 3.9, chloride 103, CO2 25, BUN 15, creatinine 1.2, glucose 128. ASSESSMENT AND PLAN: 1. Abnormal stress test. The patient is scheduled to undergo a left heart catheterization tomorrow. Continue with the current cardiac medications. 2. Hypertension. Continue on the current antihypertensive regimen. 3. Tobacco dependence. The patient has been counseled about smoking cessation. 4. Coronary artery disease. Aware. 5. Deep vein thrombosis prophylaxis. Continue on heparin. cc: Cherelle Medellin MD
[2019-01-09] MEDS: LIPITOR PO SCH (20:36)
[2019-01-10 07:46] LABS: INR 1.13; PROTIME 14.6 Seconds (11.0-16.0)
[2019-01-10 07:47] LABS: HEMATOCRIT 42.3 % (42.0-52.0); HEMOGLOBIN 14.2 g/dL (14.0-18.0); MCH 32.2 PG (27-31); MCHC 33.6 g/dL (33-37); MCV 95.9 FL (81-99); MPV 12.7 FL (7.4-10.4); RBC 4.41 XMIL (4.7-6.1); RDW 13.6 % (11.5-14.5); WBC 9.14 X1000 (4.8-10.8)
[2019-01-10 07:58] LABS: AGAP 9; BUN 16 mg/dL (8-22); CALCIUM 9.1 mg/dL (8.8-10.2); CHLORIDE 104 mmol/L (98-107); COSMO 279; CREATININE 1.2 mg/dL (0.7-1.2); ESTIMATED GFR > 60; GLUCOSE 100 mg/dL (70-104); POTASSIUM 4.2 mmol/L (3.5-5.1); SODIUM 139 mmol/L (136-145); TCO2 26 mmol/L (25-35)
[2019-01-10] MEDS ORDERED: HEPARIN 1000 UNITS/NS 2,000 UNIT/1,000 ML IV.SOLN ONE (08:17)
[2019-01-10] MEDS ORDERED: NITROGLYCERIN ONE (08:24)
[2019-01-10] MEDS: COREG PO SCH (09:01)
[2019-01-10] MEDS: NORVASC PO SCH (09:01)
[2019-01-10] MEDS: PRINIVIL PO SCH (09:02)
[2019-01-10] MEDS ORDERED: VERSED ONE ×2 (09:27→10:07)
[2019-01-10] MEDS ORDERED: CLAVE TWINSITE 32 IN 11959 ONE (09:27)
[2019-01-10] MEDS ORDERED: ANESTHESIA PB SET 88 IN 5742 ONE (09:27)
[2019-01-10] MEDS ORDERED: DEMEROL ONE ×2 (09:27→09:49)
[2019-01-10] MEDS ORDERED: NS 1,000 ML ONE (09:27)
--- NOTE | 2019-01-10 10:49 | CARDIAC CATH REPORT ---
DATE: 01/10/2019 PROCEDURES: 1. Left heart catheterization. 2. Selective bilateral coronary arteriography. 3. Left ventriculography. 4. Selective opacification of the right femoral artery, selective deployment of Angio-Seal device. HISTORY: A 63-year-old male, who presented to the ER with recurrent chest pain. Blood pressure was very high. A myocardial perfusion stress test was recommended to evaluate for coronary heart disease because of mild elevation of troponin levels. The study showed question of ischemia of the inferolateral wall. Because of the abnormal stress, a cardiac catheterization was recommended. The benefits, risks and complications were discussed. He understood and requested to proceed. 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 The right femoral artery site was prepped and draped in a sterile fashion, anesthetized with lidocaine 1%. He used 2 mg of Versed and 50 mg of Demerol given in divided doses. At the end of the procedure, he received an additional 1 mg of Versed for sedation. Then, a 6 [place] sheath was inserted into the right femoral artery following modified Seldinger technique. Thereafter using a 6 [place] left Alexis catheter, the left coronary artery was selectively opacified. Then I attempted to use a 6 [place] right Alexis catheter, however, this catheter was not adequate for the engagement of the right coronary artery. I switched over to an Amplatz right #2, with the catheter adequate opacification of the right coronary artery was achieved. Then this catheter was removed. A 6 [place] pigtail catheter was advanced into the left ventricular chamber. Left ventriculogram was performed in the 30 degree CARL projection with caudal angulation by injecting 37 mL of Omnipaque at 10 mL/second. Then, the pigtail catheter was removed and the sheath was flushed. Right femoral opacified and Angio-Seal device was deployed. The patient tolerated the procedure well without complication. SUMMARY OF HEMODYNAMIC FINDINGS: Central aortic pressure is 152/82, left ventricular pressure 142/19. Post LV gram 139/20. Final central aortic pressure 145/79. SUMMARY OF THE ANGIOGRAPHIC FINDINGS: 1. Left main coronary artery: The vessel is anatomically normal. It is a long structure that divides into LAD and circumflex. 2. Left anterior descending coronary artery: The vessel appears to be also grossly anatomically normal. Gives rise to a tiny first diagonal branch then gives rise to a good size second diagonal branch and the mid to terminal LAD is a normal-looking vessel. 3. Circumflex: The circumflex is a nondominant system. Proximally gives rise to a tiny lateral vessel then gives rise to what appears to be a sinus nohelia branch and then AV Branch. Both vessels are normal. Circumflex then terminates as a very large obtuse marginal system with several tiny terminal bifurcations. This system is normal. I do not see any indication of any obvious occlusion, although, there is 1 small vessel that appears to be feeding a very tiny occluded branch of the OM. This is kind of questionable. 4. Right coronary artery: The right coronary artery has an anterior and inferior takeoff. This vessel gives rise to a proximal RV branch, it is somewhat tortuous then terminates into a posterior descending branch and a posterolateral vessel. The right coronary artery is free of any obstruction. LEFT VENTRICULOGRAM: Left ventriculogram in the 30 degree CARL projection with caudal angulation reveals enlargement of the left ventricular chamber with global hypokinesis with some particular impairment of the basal inferior segment. EF by computer tracing is 34%. Global ejection fraction appears to be in the order of 35% to 40% visually. No mitral regurgitation is noted. OPACIFICATION OF THE RIGHT FEMORAL ARTERY: The right femoral artery is unremarkable. Angio-Seal device was deployed successfully. SUMMARY: This study shows: 1. Borderline elevation of LVEDP in the order of 19-20. 2. Globally impaired left ventricular systolic function, ejection fraction of 35% to 40%. 3. Essentially normal epicardial coronary arteries. There is no definite indication of any coronary plaque or obstruction within the lumen of the coronary arteries. Left main, LAD, circumflex, and right coronary artery appear to be essentially normal. 4. No mitral regurgitation nor aortic stenosis. RECOMMENDATIONS: Aggressive medical management with antihypertensive drugs. We will follow the patient at the office periodically. He really needs to establish care with a primary care physician. cc: Brant [place] MD [facility]
[2019-01-10] MEDS: ASPIRIN PO SCH (11:19)
[2019-01-10] MEDS: NICODERM PATCH TD SCH (11:20)
[2019-01-10] MEDS: HEPARIN SUBQ SCH (11:20)
[2019-01-10 20:24] VITALS: BP 160/82
--- NOTE | 2019-01-11 22:50 | DISCHARGE SUMMARY ---
ADMISSION DATE: 01/05/2019 DISCHARGE DATE: 01/10/2019 DISCHARGE DISPOSITION: Home. DISCHARGE CONDITION: Hemodynamically stable, not having any chest pain. He tolerated the coronary angiography well in the morning time. DISCHARGE DIAGNOSES: 1. Atypical chest pain. 2. Hypertensive heart disease. 3. Congestive heart failure with reduced ejection fraction of 40% with diastolic dysfunction. 4. Essential hypertension. 5. Active tobacco abuse. 6. Medication noncompliance. DISCHARGE MEDICATIONS: Trazodone 25 mg at nighttime, atorvastatin 40 mg at nighttime, carvedilol 12.5 mg every 12 hours, aspirin 81 mg daily, amlodipine 5 mg b.i.d., lisinopril 40 mg daily. VITALS AT TIME OF DISCHARGE: Temperature 97.8 degrees, pulse 60, respiratory rate 20, blood pressure 136/80, saturating 100% on room air. PHYSICAL EXAMINATION: General: Not in acute distress. HEENT: Oral cavity is moist. Lungs: Air entry bilaterally equal. No wheezing or crackles. Cardiovascular: S1, S2 normal. No murmur or gallop. Abdomen: Soft, nontender. Extremities: No lower extremity edema. Right-sided groin site appears to have a good femoral pulse without any hematoma. LABORATORY DATA: At the time of admission on discharge are WBC 9.1, hemoglobin 14.2, platelets 162,000, potassium 4.2, BUN 16, creatinine 1.2, magnesium 1.7. Microbiology: No data. SIGNIFICANT IMAGING DURING HOSPITAL ADMISSION: Chest x-ray on admission did not have any acute pathology. Echocardiogram had suggested ejection fraction of 50% without any segmental abnormalities. Myocardial perfusion scan on January 06 had clinically negative for chest pain. He had electrocardiographically baseline ST-T abnormality which did not change following administration of Lexiscan. There was moderate left ventricular enlargement and small area of moderate reversibility in basal inferolateral region of left ventricle suggesting of inducible ischemia so he underwent coronary angiography on 01/10/2019, which had detected borderline elevation of end-diastolic pressure in the left ventricle of 19 to 20 mmHg. Left ventricular dysfunction with ejection fraction of 40%. Normal epicardial coronary arteries and medical management was recommended. HOSPITAL COURSE SUMMARY: Mr. Nguyen is a 63-year-old man with a past medical history of essential hypertension, noncompliant with medication, reported history of coronary artery disease with 3 myocardial infarctions as per the report without having any stent placed or any cardiac surgery who came in with chief complaints of intermittent substernal chest pain of about 3 months duration, which was significantly getting worse. In the emergency room, he was found to have essential hypertension. His heart score was 4, and he was admitted for management of unstable angina. He underwent echocardiogram, EKG, nuclear medicine stress test. Nuclear medicine stress test was abnormal, so he underwent coronary angiography which did not have any significant coronary artery disease. 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 His chest pain was probably noncardiac in origin since he did not have any significant coronary artery disease. At the time of discharge, he was counseled about taking his medications regularly and advised him to establish care with regular physician. All of his questions were answered. Plan of care were discussed with him. All of their questions have been satisfactorily answered. cc: Anupam Saavedra MD
== END 2019-01-10 20:30 | disposition home or self-care (01) | DRG 287 ==
LOC: ED 22:59 → SUATTDRO 23:05 → EDIPHOLD 01-06 04:06 → SUATTDRO 01-06 04:06 → 2N 01-06 11:11 → ICU 01-08 13:26 → 3N 01-09 16:17
PROVIDERS: ATTEND Internal Medicine